=== PATIENT | female | born 1995 | race Caucasian/White ===

== ENCOUNTER 2020-02-23 13:20 | Emergency (ER) | payer MEDICAID ==
[~2020-02-23] VITALS: Ht 160 cm; Wt 68.2 kg
[2020-02-23 13:21] VITALS: BP 107/63
== END 2020-02-23 13:47 | disposition home or self-care (01) ==
LOC: EMS 13:23
DX: K08.89 Other specified disorders of teeth and supporting structures (principal)
CPT/HCPCS: 99283; Z7502